=== PATIENT | female | born 1985 | race Caucasian/White ===

== ENCOUNTER 2017-12-27 16:45 | Outpatient (CLI) | payer OTHER ==
--- NOTE | 2017-12-28 12:25 | MRI Report ---
EXAM: LEFT HAND MRI WITHOUT CONTRAST EXAM DATE: 12/27/2017 05:23 PM. CLINICAL HISTORY: Swelling, mass, and lump in the left upper limb. Mass in the left fourth finger for 8 months that has been increasing in size. Pain upon pressure. COMPARISON: None. TECHNIQUE: Multiplanar, multisequence T1-weighted and fluid-sensitive sequences of the hand without c ontrast. Other: Contrast was not administered due to the patient being .. FINDINGS: Bones: No fractures or subluxations. No marrow edema. No bone lesions. Cartilage: The articular cartilage is unremarkable. Ligaments: The visualized collateral ligaments are intact. Tendons: The flexor and extensor tendons are unremarkable. Musculature: No edema or fatty atrophy. Other: No joint effusions. The patient has a soft tissue mass on the radial side of the fourth digit just distal to the proximal interphalangeal joint. This measures 0.6 x 1.2 x 1.1 cm. It has a hypoint ense rim on all sequences. On T1-weighted imaging, the center is mildly hypointense and mildly T2 hyp erintense. It causes local distortion of the subcutaneous tissues. It abuts the flexor tendons but do es not appear to significantly displace them. There is no obvious adjacent bony remodeling. IMPRESSION: 1.2 cm soft tissue mass on the radial side of the fourth digit near the middle phalanx. I n the absence of contrast, it cannot be determined whether this lesion is cystic or solid. The differ ential diagnosis would include a mildly proteinaceous cyst, hematoma, an atypical ganglion cyst, a gi ant cell tumor of the tendon sheath, or another soft tissue tumor such as an atypical glomus tumor. F urther characterization could be obtained with an ultrasound to determine whether this is cystic or s olid. If it is noncystic, correlation to pathology is recommended. [facility] SE[facility] Referring Provider Line: [phone] SITE ID: [id number]
== END 2017-12-27 16:46 | disposition home or self-care (01) ==
LOC: DI 16:45
PROVIDERS: ATTEND Orthopaedic Surgery
DX: R22.32 Localized swelling, mass and lump, left upper limb (principal)

== ENCOUNTER 2020-10-11 21:04 | Emergency (ER) | payer OTHER ==
--- NOTE | 2020-10-11 21:14 | ED Physician Documentation ---
PD HPI LOWER EXT INJURY - Stated complaint Stated Complaint: R ANKLE PX - History obtained from History obtained from: Patient ([place] [employer] [place] and came [place] wrong inverting the right ankle about 6 PM tonight and fell to "snap." Unable to walk or bear weight. No other injuries.) Review of Systems Constitutional: reports: Reviewed and negative Throat: reports: Reviewed and negative Cardiac: reports: Reviewed and negative Respiratory: reports: Reviewed and negative PD PAST MEDICAL HISTORY - Present Medications Home Medications: Ambulatory Orders Medication Instructions Recorded Confirmed Brexpiprazole [Rexulti] 1 mg PO DAILY 10/11/20 10/11/20 Bupropion HCl [Wellbutrin Xl] 300 mg PO DAILY 10/11/20 10/11/20 HYDROcod/ACETAM 5/325 [Holcomb 5/325] 1 - 2 tab PO Q6H PRN #15 tab 10/11/20 Knee Scooter 1 unit TD ONCE #1 10/11/20 Lamotrigine [Lamictal (Green)] 1 tab PO DAILY 10/11/20 10/11/20 - Allergies Allergies/Adverse Reactions: Allergies Allergy/AdvReac Type Severity Reaction Status Date / Time NSAIDS (Non-Steroidal Allergy Anaphylaxis Verified 10/11/20 21:15 Anti-Inflamma PD ED PE NORMAL - Vitals Vital signs reviewed: Yes - General General: Alert and oriented X 3, No acute distress - HEENT HEENT: PERRL, EOMI - Neck Neck: No bony TTP - Extremities Extremities: Other (Right ankle is swollen over the and tender over the lateral malleolus. No proximal fibular foot tenderness. No medial malleolar tenderness. Normal neurovascular function in the foot. No deformity.) - Neuro Neuro: Alert and oriented X 3, Normal speech Results - Vitals Vitals: Vital Signs - 24 hr 10/11/20 10/11/20 21:12 22:05 Temperature 36.8 C 37.3 C Heart Rate 99 85 Respiratory 18 16 Rate Blood Pressure 187/108 H 149/98 H O2 Saturation 100 100 Oxygen O2 Source Room air - Rads (name of study) R ankle 3v XR Radiology: EMP read contemporaneously (Read as soft tissue swelling, no fracture. In my review, there is a suspicious area on 1 view only (oblique) that could be tiny avulsion off of lateral talus.) PD MEDICAL DECISION MAKING - ED course ED course: 35 yo F with R ankle injury, inversion type. Xray without clear frx, but in my opinion may have small avulsion off of talus on 1 view only. In a boot and crutches. WBAT pending orhto f/u. Departure - Departure Disposition: Home, Self Care Condition: Good Record reviewed to determine appropriate education?: Yes Instructions: ED Sprain Ankle W X Ray Prescriptions: Knee Scooter 1 unit TD ONCE #1 HYDROcod/ACETAM 5/325 [Holcomb 5/325] 1 - 2 tab PO Q6H PRN #15 tab PRN Reason: Pain Comments: As discussed, there is an area on the talus that looks a little suspicious for where the tendon inserts, this could be considered very mild fracture. If not improving in a week [place] your hand. Tylenol as needed for pain. Elevate is much as possible. Ice as well. Discharge Date/Time: 10/11/20 22:10
[2020-10-11] MEDS ORDERED: HYDROcod/ACET 5/325 Prepack 4 PO STA (21:55)
--- NOTE | 2020-10-11 22:14 | XRAY Report ---
PROCEDURE: Ankle 3 View RT INDICATIONS: ankle inj TECHNIQUE: 3 views of the ankle were acquired. COMPARISON: None FINDINGS: Bones: No visible fractures or dislocations. Minor plantar and dorsal calcaneal enthesopathy. Ankle mortise is normally aligned. No suspicious bony lesions. Soft tissues: No tibiotalar joint effusion. Achilles tendon appears normal. Lateral periarticular soft tissue swelling. IMPRESSION: Soft tissue swelling without underlying visible fracture suggesting sprain. Reviewed by: Bree Shrestha MD on 10/11/2020 10:13 PM PST Approved by: Bree Shrestha MD on 10/11/2020 10:13 PM PST Station ID: [id number]
[2020-10-11 22:18] VITALS: BP 149/98
== END 2020-10-11 22:10 | disposition home or self-care (01) ==
LOC: ED 21:04
DX: S93.401A Sprain of unspecified ligament of right ankle, initial encounter (principal); X50.1XXA Overexertion from prolonged static or awkward postures, initial encounter; Y93.39 Activity, other involving climbing, rappelling and jumping off; Y92.39 Other specified sports and athletic area as the place of occurrence of the external cause
CPT/HCPCS: 99283; 99284

== ENCOUNTER 2020-10-25 10:57 | Outpatient (CLI) | payer OTHER | END 2020-10-25 10:58 | disposition home or self-care (01) | LOC: LAB 10:57 | PROVIDERS: ATTEND Obstetrics & Gynecology | DX: Z53.9 Procedure and treatment not carried out, unspecified reason (principal) ==

== ENCOUNTER 2020-10-27 05:58 | Inpatient (IN) | payer OTHER ==
[2020-10-25 11:30] LABS: CALCIUM 9.1 mg/dL (8.5-10.3); CREATININE 0.8 mg/dL (0.4-1.0)
[2020-10-27] MEDS ORDERED: CELECOXIB 100 MG CAPSULE PO ONE (06:29)
[2020-10-27] MEDS ORDERED: ACETAMINOPHEN 1,000 MG/100 ML 100 ML IV ONE (06:29)
[2020-10-27] MEDS ORDERED: GABAPENTIN 400 MG CAPSULE ONE (06:29)
[2020-10-27] MEDS ORDERED: LACTATED RINGERS 1,000 ML IV ONE ×2 (06:37→11:00)
[2020-10-27] MEDS ORDERED: DEXTROSE 5% 1,000 ML IV ONE (06:37)
[2020-10-27 06:57] LABS: HCG UR QUAL NEGATIVE
[2020-10-27] MEDS ORDERED: ROPIVACAINE 0.5% PF 20 ML AMPULE ONE (07:09)
[2020-10-27] MEDS ORDERED: DEXAMETHASONE 4 MG/ML VIAL ONE (07:09)
[2020-10-27] MEDS ORDERED: ONDANSETRON 4 MG/2 ML VIAL ONE (07:09)
[2020-10-27] MEDS ORDERED: PROPOFOL 200 MG/20 ML VIAL IVP ONE (07:09)
[2020-10-27] MEDS ORDERED: LIDOCAINE-PF 2% 10 ML AMP SUBQ ONE (07:09)
[2020-10-27] MEDS ORDERED: KETOROLAC 30 MG/ML VIAL ONE (07:09)
[2020-10-27] MEDS ORDERED: LIDOCAINE-MPF 2% 5 ML VIAL ONE (07:09)
[2020-10-27] MEDS ORDERED: SODIUM CHLORIDE 0.9% 10 ML ONE (07:09)
[2020-10-27] MEDS ORDERED: ROCURONIUM 50 MG/5 ML VIAL ONE ×2 (07:09→08:25)
[2020-10-27] MEDS ORDERED: BUPIVACAINE 0.25% PF 10 ML VIAL ONE (07:25)
[2020-10-27] MEDS ORDERED: NALOXONE 0.4 MG/ML VIAL IVP PRN (07:30)
[2020-10-27] MEDS ORDERED: ePHEDrine 50 MG/ML VIAL IVP PRN (07:30)
[2020-10-27] MEDS ORDERED: fentaNYL 100 MCG/2 ML VIAL IVP PRN (07:30)
[2020-10-27] MEDS ORDERED: ATROPINE ABBOJECT 1 MG/10 ML SYRINGE IVP PRN (07:30)
[2020-10-27] MEDS ORDERED: MORPHINE 2 MG/ML CARPUJECT IVP PRN (07:30)
[2020-10-27] MEDS ORDERED: ONDANSETRON 4 MG/2 ML VIAL IVP PRN ×2 (07:30→11:11)
--- NOTE | 2020-10-27 07:34 | ANESTHESIA ---
Pre-Anesthesia VS, & Labs - Diagnosis Abnormal Menstral Bleeding - Procedure TLH Vital Signs: Temp Pulse Resp BP Pulse Ox 36.4 C L 92 16 158/100 H 98 10/27/20 06:42 10/27/20 06:42 10/27/20 06:42 10/27/20 06:42 10/27/20 06:42 Height: 5 ft 6 in Weight (kg): 119.2 kg Body Mass Index: 42.4 BMI Classification: Morbidly Obese - Is Patient ?: No - Lab Results Current Lab Results: Laboratory Tests 10/25/20 11:03: Blood Type O POSITIVE, Antibody Screen NEGATIVE 10/25/20 11:03: Sodium 136, Potassium 4.0, Chloride 99 L, Carbon Dioxide 23, Anion Gap 14.0 H, BUN 12, Creatinine 0.8, Estimated GFR (MDRD) 81 L, Glucose 181 H, Calcium 9.1 Fish Bones: 10/25/20 11:03 Home Medications and Allergies Active Medications Non-Formulary Medication (Brexpiprazole [Rexulti]) 2 mg PO DAILY MARYCARMEN Non-Formulary Medication (Bupropion Hcl [Wellbutrin Xl]) 300 mg PO DAILY MARYCARMEN Non-Formulary Medication (Lamotrigine [Lamictal (Green)]) 50 mg PO DAILY MARYCARMEN Brexpiprazole [Rexulti] 2 mg PO DAILY 10/11/20 Bupropion HCl [Wellbutrin Xl] 300 mg PO DAILY 10/11/20 Lamotrigine [Lamictal (Green)] 50 mg PO DAILY 10/11/20 Allergies/Adverse Reactions: Allergies Allergy/AdvReac Type Severity Reaction Status Date / Time NSAIDS (Non-Steroidal Allergy Anaphylaxis Verified 10/27/20 06:53 Anti-Inflamma Anes History & Medical History - Anesthetic History Anesthesia Complications: reports: No previous complications Family history of Anesthesia Complications: Denies Family history of Malignant Hyperthermia: Denies - Medical History Cardiovascular: reports: None Pulmonary: reports: None Gastrointestinal: reports: None Urinary: reports: None Neuro: reports: None Musculoskeletal: reports: Other Endocrine/Autoimmune: reports: None Skin: reports: None Smoking Status: Former smoker Psychosocial: reports: Depression, Anxiety History of Cancer?: No - Surgical History General: Cholecystectomy Gynecologic: Endometrial ablation Exam Dental: WNL Mouth Openin Fingerbreadth Neck Mobility: Normal Mallampati classification: III Thyromental Distance: less than 4 cm Plan Anesthesia Type: General, Transverse Abdominis Plane (TAP) Block Regional Block: Per Surgeon's request for Post Op pain control Consent for Procedure(s) Verified and Reviewed: Yes Code Status: Attempt Resuscitation ASA classification: 2-Mild systemic disease Is this case an emergency?: No
[2020-10-27] MEDS ORDERED: fentaNYL 100 MCG/2 ML VIAL ONE ×2 (07:38→11:57)
[2020-10-27] MEDS ORDERED: MIDAZOLAM 2 MG/2 ML VIAL ONE (07:38)
[2020-10-27] MEDS ORDERED: LACTATED RINGERS 1,000 ML IV SCH ×2 (08:00→12:00)
[2020-10-27] MEDS ORDERED: ceFAZolin 3 GM in SODIUM CHLORIDE 0.9% 100ML 100 ML IV ONE (08:00)
[2020-10-27] MEDS ORDERED: LABETALOL 5 MG/1 ML 20 ML MDV ONE (08:07)
[2020-10-27] MEDS ORDERED: BUPIVACAINE 0.25% PF 30 ML VIAL SUBQ ONE (08:15)
[2020-10-27] MEDS ORDERED: SUGAMMADEX 200 MG/2 ML VIAL IVP ONE (08:52)
[2020-10-27] MEDS ORDERED: MORPHINE 10 MG/ML VIAL IVP STA (11:11)
[2020-10-27] MEDS ORDERED: oxyCODONE 5 MG TABLET PO PRN (11:11)
[2020-10-27] MEDS ORDERED: diphenhydrAMINE 25 MG CAPSULE PO PRN (11:11)
[2020-10-27] MEDS: HYDROmorphone 0.5 MG/0.5 ML SYRINGE IVP PRN ×2 (11:18→11:33)
--- NOTE | 2020-10-27 11:26 | OPERATIVE REPORT ---
Operative Report - General Admit Date: 10/27/20 Procedure Date: 10/27/20 Planned Procedure: Total Laparoscopic Hysterectomy, bilateral salpingectomy, cystoscopy Pre-Op Diagnosis: Heavy Menstrual Bleeding, cervical intraepithelial neoplasia-2 Procedure Performed: Total Laparoscopic Hysterectomy, Bilateral Salpingectomy, Cystoscopy Post Op Diagnosis: Heavy Menstrual Bleeding, cervical intraepithelial neoplasia- 2 - Procedure Note Primary Surgeon: Cristal Secondary Surgeon: Fabio Anesthesia Provider: Herberth Anesthesia Technique: General ET tube, Other (TAP Block) Pathology: Uterus and cervix, bilateral fallopian tubes IV Fluids (mL): 1,400 (Ringers Lactate) Estimated Blood Loss (mL): 100 Urine Output (mL): 550 Indications: 35 year old female A6, using spouse's vasectomy for contraception, with heavy menstrual bleeding causing anemia and YVONNE-2 on recent colposcopy directed cervical biopsy for HGSIL pap, who is finished with childbearing and desiring hysterectomy to definitively manage her heavy menstrual bleeding. She declined a LEEP procedure for YVONNE-2 diagnosis. She was counseled and consented for the procedure. Findings: Pelvic exam limited by body habitus, approximately 10 week sized uterus, midline and mobile. No adnexal masses. Intraoperatively: Uterus sounded to 9cm. On laparoscopy, thick omental adhesion to anterior abdominal wall at umbilicus. Uterus with approximately 2cm fibroid in left posterior lower uterine segment, globular uterus. Normal left fallopian tube and ovary. Right fallopian tube with 3 subcentimeter paratubal cysts on fimbria. Right ovary with corpus luteum cyst, otherwise normal. Anterior cul-de-sac with scarring of bladder to lower uterine segment. Posterior cul-de-sac with smalls vesicles, scarring, and peritoneal windows consistent with endometriosis. Liver edge normal. Cystoscopy: Normal bladder without sutures or lacerations, brisk efflux of ur ine from bilateral ureteral orifices visualized. Complications: None - Other Other Information/Narrative: OPERATIVE PROCEDURE: The patient was taken to the operating room where general endotracheal anesthesia was performed without any complications. An examination under anesthesia was performed notable above findings. The patient was prepared and draped in the usual sterile fashion in the dorsal low lithotomy position. A Douglas catheter was placed in the bladder and an ImageBriefincula uterine manipulator with Alice cervical cup was placed in the uterus to provide uterine manipulation. A vaginal balloon was inflated with saline to aid in pneumoperitoneum. An incision was made above the umbilicus, and the Veress needle was used to insufflate the abdomen with CO2 gas. Intraabdominal placement confirmed with initial entry pressure of 6mm Hg. A pneumoperitoneum was then created with CO2 gas to maintain maximum pressure of 15mm Hg. The Veress needle was removed and the laparoscopic trocar and scope were placed, using an [place] bladeless trocar, under direct visualization. Ancillary ports were placed all under direct visualization. The first was a 5 mm port near the left ASIS, the second a 11 mm port near the right ASIS. Survey of the abdomen and pelvis revealed the findings as noted above. The ureters were easily identified transperitoneally bilaterally. The Ligasure device was used to seal and transect the right utero-ovarian and round ligaments followed by opening of the anterior leaf of the broad ligament down to the level of the cervix. The uterine artery was skeletonized, sealed and ligated using the Ligasure device. The same procedure was performed on the left side. A bladder flap was created and the bladder dissected down from the cervix until the endopelvic fascia was identified. The Alice cup was identified and an incision was made in the cervicovaginal junction on top of the vaginal cuff. This incision was continued circumferentially following the Alice cup until the cervix was freed from the surrounding vagina. The uterus was then delivered through the vagina. The rig ht fallopian tube was ligated at the mesosalpinx and removed from the abdomen. The left fallopian tube was removed in a similar fashion. The vaginal cuff was closed using 0 V-loc suture endostitch in running fashion. The pelvis was irrigated and the entire pelvis and bilateral pedicles were noted to be hemostatic. The douglas was removed and cystoscopy was performed for inspection of the bladd er. A complete survey of the bladder revealed no injury or defects to the bladder or the urethra, and brisk efflux of urine was noted from bilateral ureteral orifices. The cystoscope was removed and the douglas catheter replaced. All instruments were removed from the abdomen. The abdomen was decompressed and all the trocars were removed. The RLQ fascia was closed with 0-vicryl in a using the Romeo-Ashley device. All skin incisions were closed with 4-0 monocryl in subcuticular fashion and covered with Dermabond. All instruments were removed from the vagina. The patient tolerated the procedure well. All sponge, sharp, and instrument counts were correct x2. The patient was awakened from anesthesia and taken to the recovery room in stable condition with a Douglas catheter in place.
[2020-10-27] MEDS ORDERED: HYDROmorphone 1 MG/ML CARPUJECT ONE (11:27)
[2020-10-27] MEDS ORDERED: ACETAMINOPHEN 325 MG TABLET PO SCH (13:00)
--- NOTE | 2020-10-27 13:16 | PHARMACY PROGRESS NOTE ---
- Best Possible Medication History Admit Date and Time: 10/27/20 0558 Processed by: Pharmacy Medication History completed: Yes Patient Interview: Completed As the person ultimately responsible for medication therapy, providers are able to order a medication from an existing home medication list in [facility] via the "Reconcile Routine" prior to Confirmation of that medication by administrative support clerk. Such practice is discouraged except when the physician, in their clinical tigre gment, deems that a medical need exists for a medication without regard to previous use.
[2020-10-27] MEDS: LACTATED RINGERS 1,000 ML IV SCH ×2 (14:01→19:31)
[2020-10-27] MEDS: ACETAMINOPHEN 325 MG TABLET PO SCH ×2 (15:56→20:40)
[2020-10-27] MEDS ORDERED: buPROPion XL 150 MG TABLET PO SCH (17:00)
[2020-10-27] MEDS ORDERED: lamoTRIgine 25 MG TABLET PO SCH (17:00)
[2020-10-27] MEDS: oxyCODONE 5 MG TABLET PO SCH ×2 (18:30→22:18)
[2020-10-27] MEDS: DOCUSATE SODIUM 100 MG CAPSULE PO SCH (20:40)
[2020-10-27] MEDS ORDERED: Brexpiprazole [Rexulti] 1 MG Tablet PO SCH (21:00)
[2020-10-28] MEDS: ACETAMINOPHEN 325 MG TABLET PO SCH ×4 (00:40→12:17)
[2020-10-28] MEDS: LACTATED RINGERS 1,000 ML IV SCH ×2 (01:11→06:26)
[2020-10-28] MEDS: oxyCODONE 5 MG TABLET PO SCH ×3 (01:55→09:50)
[2020-10-28 06:01] LABS: BASOPHILS % (AUTO) 0.3 %; EOSINOPHILS # (AUTO) 0.5 10^3/uL (0.0-0.7); EOSINOPHILS % (AUTO) 3.5 %; HGB - HEMOGLOBIN 10.6 g/dL (12.0-16.0); LYMPHOCYTES # (AUTO) 1.9 10^3/uL (1.5-3.5); LYMPHOCYTES % (AUTO) 14.6 %; MEAN CORPUSCULAR HGB CONC 30.5 g/dL (32.0-36.0); MEAN CORPUSCULAR VOLUME 75.4 fL (81.0-99.0); MEAN PLATELET VOLUME 9.4 fL (7.9-10.8); MONOCYTES # (AUTO) 0.8 10^3/uL (0.0-1.0); MONOCYTES % (AUTO) 5.8 %; NEUTROPHILS # (AUTO) 9.8 10^3/uL (1.5-6.6); NEUTROPHILS % (AUTO) 75.3 %; PLT - PLATELET COUNT 335 10^3/uL (130-450)
[2020-10-28 06:23] LABS: PLATELET ESTIMATE, MANUAL NORMAL (130-450,000) (NORMAL); PLATELET MORPHOLOGY NORMAL APPEARANCE (NORMAL); RBC MORPHOLOGY (MULTIPLE) 1+ ANISOCYTOSIS (NORMAL)
[2020-10-28] MEDS: DOCUSATE SODIUM 100 MG CAPSULE PO SCH (08:17)
[2020-10-28] MEDS ORDERED: ENOXAPARIN 40 MG/0.4 ML SYRINGE SUBQ SCH (09:00)
--- NOTE | 2020-10-28 09:46 | PROVIDER PROGRESS NOTE ---
Subjective - Prog Note Date Prog Note Date: 10/28/20 Prog Note Time: 09:44 - Subjective Pt reports feeling: Improved Subjective: 35yof now POD#1 s/p TLH/bilateral salpingectomy/cystoscopy for heavy menstrual bleeding and YVONNE-2. She reports feeling well overnight, pain control much better. Denies fevers/chills, chest pain/shortness of breath, nausea/vomiting. She has not yet ambulated. Valles catheter removed around 0630. She denies complaints. Current Medications - Current Medications Current Medications: see medication list Objective - Vital Signs/Intake & Output Reviewed Vital Signs: Yes Vital Signs: Vital Signs x48h Temp Pulse Resp BP Pulse Ox 10/28/20 08:00 98.1 F 81 16 131/73 H 100 10/28/20 04:00 98.6 F 90 16 144/84 H 97 Intake & Output: Intake & Output 10/25/20 10/26/20 10/27/20 10/28/20 23:59 23:59 23:59 23:59 Intake Total 1262.5 2131.667 Output Total 1400 1450 Balance -137.5 681.667 - Objective General Appearance: positive: No acute distress, Alert Eyes Bilateral: positive: Normal inspection ENT: positive: ENT inspection nml Neck: positive: Nml inspection Respiratory: positive: No respiratory distress Cardiovascular: positive: Regular rate & rhythm Abdomen: positive: Other (Soft, mildly distended, appropriately tender to palpation) Skin: positive: Other (Abdominal incision sites clean and dry, covered with dermabond) Extremities: positive: Non-tender Neurologic/Psychiatric: positive: Oriented x3 Comments/Other: - scant bleeding on peripad - Lab Results Fish Bones: 10/28/20 05:36 10/25/20 11:03 Other Labs: Lab Results x24hrs 10/28/20 Range/Units 05:36 WBC 13.0 H (4.8-10.8) x10^3/uL RBC 4.60 (4.20-5.40) 10^6/uL Hgb 10.6 L (12.0-16.0) g/dL Hct 34.7 L (37.0-47.0) % MCV 75.4 L (81.0-99.0) fL MCH 23.0 L (27.0-31.0) pg MCHC 30.5 L (32.0-36.0) g/dL RDW 21.0 H (12.0-15.0) % Plt Count 335 (130-450) 10^3/uL MPV 9.4 (7.9-10.8) fL Neut # (Auto) 9.8 H (1.5-6.6) 10^3/uL Lymph # (Auto) 1.9 (1.5-3.5) 10^3/uL [place] # (Auto) 0.8 (0.0-1.0) 10^3/uL Eos # (Auto) 0.5 (0.0-0.7) 10^3/uL Baso # (Auto) 0.0 (0.0-0.1) 10^3/uL Absolute Nucleated RBC 0.00 x10^3/uL Nucleated RBC % 0.0 /100WBC Manual Slide Review Indicated WBC Morphology NORMAL APPEARANCE (NORMAL) Platelet Estimate NORMAL (130-450,000) (NORMAL) Platelet Morphology NORMAL APPEARANCE (NORMAL) RBC Morph Micro Appear 1+ ANISOCYTOSIS (NORMAL) Assessment/Plan - Problem List (1) Status post hysterectomy Impression: 35yof now POD#1 s/p uncomplicated TLH/bilateral salpingectomy/cystoscopy, doing well. Afebrile, hemodynamically stable. - continue routine post-surgical care - await void - encourage ambulation - anticipate discharge home today. (2) Heavy menstrual bleeding Impression: status post hysterectomy, see above Qualifiers: Menorrhagia type: with regular cycle Qualified Code(s): N92.0 - Excessive and frequent menstruation with regular cycle (3) Cervical intraepithelial neoplasia grade 2 Impression: s/p hysterectomy, see above
[2020-10-28 11:37] VITALS: BP 137/62
--- NOTE | 2020-10-28 12:02 | DISCHARGE SUMMARY ---
"Discharge Summary Admit Date: 10/27/20 Discharge Date: 10/28/20 Discharging Provider: Cristal Code Status: Attempt Resuscitation Condition at Discharge: Good Discharge Disposition: 01 Home, Self Care - DIAGNOSES Admission Diagnoses: Heavy Menstrual Bleeding, Cervical Intraepithelial Neoplasia Grade 2 Discharge Diagnoses with Status of Each Condition: Heavy Menstrual Bleeding, Fibroid Uterus, Cervical Intraepithelial Neoplasia Grade 2, status post hysterectomy Hypertension, stable - HPI History of Present Illness: 35 year old female A6 with heavy menstrual bleeding and cervical intraepithelial neoplasia grade 2 on colposcopy directed biopsies, declined LEEP for management of YVONNE-2, and declined hormonal contraceptive management of heavy menses, desired definitive management with hysterectomy. The patient was counseled and consented for hysterectomy. - HOSPITAL COURSE Hospital Course: The patient underwent uncomplicated total laparoscopic hysterectomy, bilateral salpingectomy, and cystoscopy, and was admitted for post-surgical care. She was noted to have elevated blood pressures during surgery and post-operatively. She is ambulating, tolerating a regular diet, voiding spontaneously, and had good pain control on oral pain medications. She is meeting discharge criteria and was discharged home in stable condition on POD#1. - ALLERGIES Allergies/Adverse Reactions: Allergies Allergy/AdvReac Type Severity Reaction Status Date / Time NSAIDS (Non-Steroidal Allergy Anaphylaxis Verified 10/27/20 06:53 Anti-Inflamma - MEDICATIONS Home Medications: Ambulatory Orders Medication Instructions Recorded Confirmed Brexpiprazole [Rexulti] 2 mg PO DAILY 10/11/20 10/27/20 Bupropion HCl [Wellbutrin Xl] 300 mg PO DAILY 10/11/20 10/27/20 Lamotrigine [Lamictal (Green)] 50 mg PO DAILY 10/11/20 10/27/20 Home Medications Other | Comments: Acetaminophen 325mg (patient already has), take 3 tablets by mouth every 6 hours as needed for pain. DO NOT EXCEED 4000 MG IN A 24 HOUR PERIOD. Oxycodone 5mg (patient already has), take 1 tablet by mouth every 4 hours as needed for pain not controlled by acetaminophen. - PHYSICAL EXAM AT DISCHARGE General Appearance: positive: No acute distress, Alert Eyes Bilateral: positive: Normal inspection ENT: positive: ENT inspection nml Neck: positive: Nml inspection Respiratory: positive: No respiratory distress Cardiovascular: positive: Regular rate & rhythm Peripheral Pulses: positive: 2+ Abdomen: positive: Other (Soft, appropriately tender to palpation) Back: positive: Nml inspection Skin: positive: Other (Abdominal skin incisions clean, dry, intact, covered with dermabond) Extremities: positive: Non-tender, Nml appearance Neurologic/Psychiatric: positive: Oriented x3 Physical Exam Other/Comments: - no edema, peripad with scant blood - LABS Result Diagrams: 10/28/20 05:36 10/25/20 11:03 - FOLLOW UP Follow Up: Follow-up in 2 weeks in [facility] at [facility], . Follow-up with your PCM for high blood pressure management. - TIME SPENT Time Spent in Discharge (Minutes): 15"
== END 2020-10-28 13:13 | disposition home or self-care (01) | DRG 742 ==
LOC: MS2 05:58
PROVIDERS: ADMIT Obstetrics & Gynecology; ATTEND Obstetrics & Gynecology
PROC: 0UT74ZZ Resection of Bilateral Fallopian Tubes, Percutaneous Endoscopic Approach (ICD-10-PCS; 2020-10-27)
PROC: 0UT94ZZ Resection of Uterus, Percutaneous Endoscopic Approach (ICD-10-PCS; principal; 2020-10-27 07:30)
DX: D25.1 Intramural leiomyoma of uterus (principal); Z68.41 Body mass index [BMI] 40.0-44.9, adult; N87.1 Moderate cervical dysplasia; N83.8 Other noninflammatory disorders of ovary, fallopian tube and broad ligament; N83.11 Corpus luteum cyst of right ovary; I10 Essential (primary) hypertension; F32.9 Major depressive disorder, single episode, unspecified; F41.9 Anxiety disorder, unspecified; E66.9 Obesity, unspecified; Z72.89 Other problems related to lifestyle; Z87.891 Personal history of nicotine dependence
CPT/HCPCS: 36415; 80048; 81025; 85025; 86850; 86900; 86901; A9270; J0131; J1170; J1650; J7120

== ENCOUNTER 2023-02-21 17:15 | Outpatient (CLI) | payer OTHER ==
[2023-02-21 20:31] LABS: BASOPHILS # (AUTO) 0.1 10^3/uL (0.0-0.1); BASOPHILS % (AUTO) 0.4 %; EOSINOPHILS # (AUTO) 0.1 10^3/uL (0.0-0.7); EOSINOPHILS % (AUTO) 0.4 %; HCT - HEMATOCRIT 46.4 % (37.0-47.0); LYMPHOCYTES # (AUTO) 1.4 10^3/uL (1.5-3.5); LYMPHOCYTES % (AUTO) 10.2 %; MEAN CORPUSCULAR HEMOGLOBIN 27.6 pg (27.0-31.0); MEAN CORPUSCULAR HGB CONC 32.3 g/dL (32.0-36.0); MEAN CORPUSCULAR VOLUME 85.5 fL (81.0-99.0); MONOCYTES # (AUTO) 1.1 10^3/uL (0.0-1.0); NEUTROPHILS % (AUTO) 80.6 %; PLT - PLATELET COUNT 260 10^3/uL (130-450); RED BLOOD COUNT 5.43 10^6/uL (4.20-5.40); RED CELL DISTRIBUTION WIDTH 13.3 % (12.0-15.0); WHITE BLOOD COUNT 13.7 x10^3/uL (4.8-10.8)
[2023-02-21 20:43] LABS: ALBUMIN 4.2 g/dL (3.2-5.5); ALBUMIN/GLOBULIN RATIO 1.1 (1.0-2.2); BILIRUBIN,TOTAL 0.8 mg/dL (0.2-1.0); CALCIUM 9.2 mg/dL (8.5-10.3); CREATININE 0.6 mg/dL (0.4-1.0); POTASSIUM 4.2 mmol/L (3.5-5.0); TOTAL PROTEIN 7.9 g/dL (6.7-8.2)
[2023-02-21 20:56] LABS: THYROID STIMULATING HORMONE 0.72 uIU/mL (0.34-5.60)
== END 2023-02-21 17:30 | disposition home or self-care (01) ==
LOC: LAB.N 17:15
PROVIDERS: ATTEND Registered Nurse
DX: R55 Syncope and collapse (principal); R07.0 Pain in throat
CPT/HCPCS: 36415; 80053; 84443; 85025